=== PATIENT | male | born 1995 | race Caucasian/White ===

== ENCOUNTER 2020-07-11 14:22 | Emergency (ER) | payer SELFPAY ==
[~2020-07-11] VITALS: Ht 190.5 cm; Wt 91.8 kg
[2020-07-11 14:27] VITALS: BP 139/63
== END 2020-07-11 15:20 | disposition home or self-care (01) ==
LOC: ER 14:22
DX: S90.821A Blister (nonthermal), right foot, initial encounter (principal); X58.XXXA Exposure to other specified factors, initial encounter; Y93.89 Activity, other specified; Y92.89 Other specified places as the place of occurrence of the external cause; Y99.8 Other external cause status
CPT/HCPCS: 99281; A4217; Z7610

== ENCOUNTER 2020-07-24 14:24 | Emergency (ER) | payer SELFPAY ==
[~2020-07-24] VITALS: Ht 182.9 cm; Wt 78.0 kg
[2020-07-24] MEDS ORDERED: LIDOCAINE HCL/EPINEPHRINE 1%-EPI 1:100,000 20 ML VIAL INFIL ONE (15:45)
[2020-07-24] MEDS ORDERED: TETANUS, DIPHTHERIA, PERTUSSIS VAC/PF 0.5ML (>7YR OLD) IM ONE (15:45)
[2020-07-24] MEDS ORDERED: BACITRACIN ZINC OINT UDPKT TOP ONE (15:45)
[2020-07-24] MEDS ORDERED: LIDOCAINE HCL/EPINEPHRINE 1%-EPI 1:100,000 10 ML VIAL IJ ONE (15:45)
[2020-07-24] MEDS ORDERED: ACETAMINOPHEN 325MG TABLET PO ONE (15:45)
[2020-07-24] MEDS ORDERED: IBUP-2029 MT (16:20)
[2020-07-24] MEDS ORDERED: CEPH500C2 MT (16:20)
[2020-07-24 16:35] VITALS: BP 118/70
== END 2020-07-24 16:35 | disposition home or self-care (01) ==
LOC: ER 14:24
DX: S61.412A Laceration without foreign body of left hand, initial encounter (principal); M79.642 Pain in left hand; F20.9 Schizophrenia, unspecified; Y08.89XA Assault by other specified means, initial encounter; Y93.89 Activity, other specified; Y92.9 Unspecified place or not applicable
CPT/HCPCS: 12002; 90471; 90715; 99283; J3490; Z7610